=== PATIENT | female | born 1945 | race African-American/Black ===

== ENCOUNTER 2018-04-23 18:48 | Emergency (ER) | payer MEDICARE ==
--- NOTE | 2018-04-23 19:24 | Diagnostic Imaging Report ---
FAHEEM SOLANO (LABOR ARBITRATOR) - ER [facility] [address] [facility].[address] [address] Report Submission Date: Apr 23, 2018 7:21:32 PM CDT Patient Study Name: CRIS STANLEY Date: Apr 23, 2018 7:06:06 PM CDT Modality Type: CT\SR Gender: F Description: CT BRAIN W/O CONTRAST : 45 Institution: [facility] Physician: FAHEEM SOLANO (JOAO) - ER CT HEAD WO CONTRAST History: Right-sided pain after fall. Technique: Standard noncontrast CT was performed with contiguous axial images acquired from skull base to vertex. Findings: There is no acute extra-axial fluid collection. Ventricles are of normal size, shape, and morphology. No mass effect or midline shift is present. No evidence of acute hemorrhage. The sandra-white matter differentiation is normal. The visualized portions of the orbits, and paranasal sinuses, and mastoids are normal. No fractures are identified. Impression: 1. Normal non contrast brain CT. Electronically signed on Apr 23, 2018 7:21:32 PM CDT by: Gregory Rosado [facility]
--- NOTE | 2018-04-23 19:25 | Diagnostic Imaging Report ---
FAHEEM SOLANO (MAIL PROCESSING CLERK) - ER [facility] [address] [facility] [address] [place], [place]. [address] Report Submission Date: Apr 23, 2018 7:23:53 PM CDT Patient Study Name: CRIS STANLEY Date: Apr 23, 2018 7:07:59 PM CDT Modality Type: CT\SR Gender: F Description: CT MAXILLOFACIAL W/O D : 45 Institution: [facility] Physician: FAHEEM SOLANO (MAIL PROCESSING CLERK) - ER CT facial bones without contrast. History: FELL TODAY AND HIT RT FACE ON CONCRETE, SWELLING AROUND RT EYE AND RT UPPER LIP Technique: Transaxial computed tomography images of facial bones were obtained without the use of intravenous contrast according to standard protocol. Findings: Mild right periorbital soft tissue swelling is present. The orbits are intact. There is no calvarial fracture. There is no evidence of sinus fracture. The bilateral zygomatic arches are intact. The maxilla and mandible are without fracture. The nasal bones are intact. The nasal sinuses midline. The globes are normal. Impression: 1 . No evidence of acute facial fracture. 2. Mild right periorbital soft tissue swelling. Electronically signed on Apr 23, 2018 7:23:53 PM CDT by: Gregory HOPPER
[2018-04-23] MEDS: ACETAMINOPHEN 500 MG TABLET PO ONE (19:30)
--- NOTE | 2018-04-23 19:30 | ED Physician Documentation ---
Fall - HISTORIAN Historian: patient, paramedics, other (family ) - HPI Stated Complaint: fall onto concrete Chief Complaint: Fall Onset: just prior to arrival Where: home Context: tripped r: mild Associated Symptoms:: no loss of consciousness Location of Pain/Injury: head, face Injury to Right Extremity: none Injury to Left Extremity: none Further Comments: yes (72 year old female patient brought in via [facility], patient tripped on her rug on the back step, hit her face on the concrete. No LOC, reports she broke her dentures; c/o right orbit pain and mandible pain.) - ROS CONST: no problems NEURO: denies: dizziness, anxiety, depression, other MS/SKIN/LYMPH: denies: weakness, numbness, neck pain, back pain, ankle swelling , leg swelling, rash, other EYES/ENT: none CVS/RESP: none GI/: denies: nausea, vomiting - PAST HX Past History: other (depression, cataracts) Allergies/Adverse Reactions: Allergies Allergy/AdvReac Type Severity Reaction Status Date / Time Penicillins Allergy Drowsiness Verified 04/23/18 18:50 Home Medications: Ambulatory Orders Medication Instructions Recorded Brinzolamide [Azopt] 1 drop OP DAILY 04/29/16 Timolol Maleate [Timoptic] 1 drop OP DAILY 04/29/16 Citalopram Hydrobromide [Celexa] 20 mg PO QD 04/23/18 Latanoprost [Xalatan] 1 each D 04/23/18 - SOCIAL HX Smoking History: non-smoker - FAMILY HX Family History: denies: none - VITAL SIGNS Vital Signs: Vital Signs Temp Pulse Resp BP Pulse Ox 98.0 F 76 16 140/73 97 04/23/18 18:54 04/23/18 18:54 04/23/18 18:54 04/23/18 18:54 04/23/18 18:54 - REVIEWED ASSESSMENTS Nursing Assessment Reviewed: Yes Vitals Reviewed: Yes Progress - Progress Progress: Reviewed CT results with patient and family; reviewed symptoms to return to Er for, verbalized understanding. ED Results Lab/Radiology - Orders Orders: ED Orders Category Date Time Status CT BRAIN W/O CONTRAST Stat Exams 04/23/[address] MAXILLOFACIAL W/O DYE Stat Exams 04/23/18 Completed Acetaminophen [Tylenol Extra Strength] Med 04/23/18 19:29 Once 1,000 mg PO NOW ONE Fall Physical Exam - Physical Exam General Appearance: mild distress Head: non-tender, no swelling, no obvious injury Neck: non-tender, painless ROM, trachea midline Eye: EOMI, lids & conjunct. nml, other (bilateral cataract surgery; periorbital pain - right; with palpation) Resp/CVS: chest non-tender, no ecchymosis, breath sounds nml, no resp. distress , heart sounds nml Abdomen: soft, no organomegaly, normal bowel sounds, no abdominal bruit, no distension Neuro: oriented x3, CN's nml as tested, sensation nml, motor nml, mood/affect nml, acid plant helper nml, reflexes nml, acid plant helper symmetrical Skin: color nml, no rash, nml palp., dry Back: normal inspection, no CVA tenderness Extremities: atraumatic, pelvis stable, hips non-tender, no pedal edema, nml ROM , nml color/temp - Gilbert Coma Score Eyes Open: Spontaneous Speech: Oriented Motor: Obeys Commands Discharge Clincal Impression: Fall Qualifiers: Encounter type: initial encounter Qualified Code(s): W19.XXXA - Unspecified fall, initial encounter Contusion of face Qualifiers: Encounter type: initial encounter Qualified Code(s): S00.83XA - Contusion of other part of head, initial encounter Referrals: Ayden Coon [Primary Care Provider] - 2 Days Additional Instructions: Return to ER if if you have any of the follow symptoms: 1.Extremely sleepy or confused 2.Severe or worsening headache 3.Seizure 4.Vomiting, fever >101.5, or stiff neck 5.Loss of control or urine or bowel 6.Trouble walking 7.Use Tylenol every 4 hours as needed for Headache 8.Diet: Start with Clear liquids and advance diet as tolerated. 9.Follow up with your doctor in 2-3 days. Condition: Stable Disposition: 01 HOME, SELF-CARE Decision to Admit: NO Decision Time: 19:30
[2018-04-23 19:41] VITALS: BP 130/61
== END 2018-04-23 19:40 | disposition home or self-care (01) ==
LOC: ED 18:48
DX: S00.83XA Contusion of other part of head, initial encounter (principal); W19.XXXA Unspecified fall, initial encounter; Y92.019 Unspecified place in single-family (private) house as the place of occurrence of the external cause; Y93.01 Activity, walking, marching and hiking; Y99.9 Unspecified external cause status
CPT/HCPCS: 70450; 70486; 99284